=== PATIENT | female | born 1970 | race African-American/Black ===

== ENCOUNTER 2019-12-27 07:47 | Emergency (ER) | payer MEDICARE, SELFPAY ==
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
[2019-12-27 07:46] VITALS: BP 154/93; PULSE 108; RESP 13; TEMP 37.1; O2SAT 96
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
[2019-12-27 08:00] VITALS: RESP 15; O2SAT 98
[2019-12-27] MEDS: TETANUS,DIPHTHERIA,AC PERTUSSIS ADULT (0.5 ML) BOOSTRIX IM (08:33)
[2019-12-27 09:43] VITALS: BP 154/74; PULSE 82; RESP 16; O2SAT 99
== END 2019-12-27 09:44 | disposition home or self-care (01) ==
PROVIDERS: Emergency Provider Emergency Medicine; PCP Family Medicine
DX: S41.011A Laceration without foreign body of right shoulder, initial encounter (principal); K21.9 Gastro-esophageal reflux disease without esophagitis; I50.9 Heart failure, unspecified; I11.0 Hypertensive heart disease with heart failure; Z23 Encounter for immunization; X99.1XXA Assault by knife, initial encounter
CPT/HCPCS: 12001; 71046; 73030; 90471; 90715; 99284

== ENCOUNTER 2020-01-01 17:08 | Emergency (ER) | payer MEDICARE, SELFPAY ==
[2020-01-01 17:34] VITALS: BP 127/67; PULSE 100; RESP 16; TEMP 36.9; O2SAT 100
--- NOTE | 2020-01-01 18:23 | ED.GENADULT ---
HPI - General Adult General Chief complaint: Unspecified Stated complaint: stitches Time Seen by Provider: 01/01/20 18:23 Source: patient and RN notes reviewed Mode of arrival: ambulatory Limitations: no limitations and clinical condition History of Present Illness HPI narrative: 49-year-old -[place] female presents with complaints of wound to the RT upper posterior-lateral shoulder that was sutured on 12/27/19. [place] concerned that suture has fallen out and possible dehiscence (lower portion) of wound. Denies tenderness, erythema, or swelling from area. Denies drainage. No streaking. Denies fever or chills. Denies nausea, vomiting, and abdominal pain. Remains active. Some parts of this dictation were generated by voice recognition software and may contain typographical and/or grammatical inaccuracies. Related Data Home Medications Medication Instructions Recorded Confirmed aspirin 81 mg PO DAILY 01/01/20 01/01/20 bimatoprost [Lumigan] 0.01 % DAILY 01/01/20 01/01/20 ergocalciferol (vitamin D2) 50,000 unit WEEKLY 01/01/20 01/01/20 [Vitamin D2] pantoprazole 40 mg PO DAILY 01/01/20 01/01/20 potassium chloride 10 meq PO DAILY 01/01/20 01/01/20 verapamil 180 mg PO DAILY 01/01/20 01/01/20 Allergies Allergy/AdvReac Type Severity Reaction Status Date / Time metoprolol Allergy Severe Stopped Verified 01/01/20 17:36 Breathing azithromycin Allergy Unknown Other Verified 01/01/20 17:36 iodine AdvReac Unknown WEAK Verified 01/01/20 17:37 FEELING, N/V ESCITALOPRAM OXALATE Allergy Mild Other Uncoded 01/01/20 17:36 Contrast Media AdvReac Unknown WEAK Uncoded 01/01/20 17:37 FEELING, NV Review of Systems Review of Systems: Narrative: CONSTITUTIONAL: Denies fever, chills, sweats. EYES: Denies visual changes, redness, discharge. ENT: Denies rhinorrhea, congestion, sore throat, otalgia. CARDIOVASCULAR: Denies chest pain, palpitations, edema. RESPIRATORY: Denies dyspnea, wheezing, cough GASTROINTESTINAL: Denies abdominal pain, nausea, vomiting, diarrhea. GENITOURINARY: Denies dysuria, hematuria, abnormal discharge SKIN: Complains of wound to the RT upper posterior-lateral shoulder with suture placed on 12/27/19. Denies erythema, tenderness, or drainage. MUSCULOSKELETAL: Denies acute back pain, joint pain, or myalgia. NEUROLOGIC: Denies numbness or focal weakness. PSYCHIATRIC: Denies anxiety or depression. [facility] Past Medical History Medical History (Updated 01/01/20 @ 18:36 by AILEEN Haque) Acid reflux Anxiety Congestive heart failure Diverticulitis Hypertension Surgical History Surgical History (Updated 01/01/20 @ 18:32 by AILEEN Haque) H/O tubal ligation History of cholecystectomy History of hysterectomy Previous section Family History Family History (Updated 01/01/20 @ 18:33 by AILEEN Haque) Mother Hypertension Father Hypertension Social History Social History (Updated 01/01/20 @ 18:33 by AILEEN Haque) Smoking status: Never smoker Alcohol intake: never Substance use: never Living arrangements: with family Gender identity (if verbalized by the patient): Female Comments At time of signature, agree with nurse past medical, surgical, social, and family history. There is no relevant family history pertinent to the presenting complaint. Exam Narrative: Exam Narrative: GENERAL: This is a well-nourished, well-developed patient, in no apparent distress. Talks in full sentences and ambulates with steady gait without dyspnea. HEAD: normocephalic, atraumatic. EYES: PERRL. Sclera clear/white. Vision is grossly intact. CARDIOVASCULAR: Regular rate and rhythm without murmurs, gallops, or rubs. RESPIRATORY: Clear to auscultation. Breath sounds equal bilaterally. No wheezes, rales, or rhonchi. GASTROINTESTINAL: Abdomen soft, non-tender, nondistended. Bowel sounds are active. No hepato-splenomegaly, or palpable masses. N
== END 2020-01-01 18:40 | disposition home or self-care (01) ==
PROVIDERS: Emergency Provider Nurse Practitioner Family; PCP Family Medicine
DX: S41.011D Laceration without foreign body of right shoulder, subsequent encounter (principal); X58.XXXD Exposure to other specified factors, subsequent encounter; K21.9 Gastro-esophageal reflux disease without esophagitis; I11.0 Hypertensive heart disease with heart failure; I50.9 Heart failure, unspecified
CPT/HCPCS: 99211; G0463

== ENCOUNTER 2020-01-10 13:09 | Emergency (ER) | payer MEDICARE, SELFPAY ==
[2020-01-10 13:24] VITALS: BP 140/79; PULSE 90; RESP 18; TEMP 36.8; O2SAT 100
--- NOTE | 2020-01-10 13:28 | ED.GENADULT ---
HPI - General Adult General Chief complaint: Recheck/Abnormal Lab/Rx Stated complaint: wound check Time Seen by Provider: 01/10/20 13:30 Source: patient and RN notes reviewed Mode of arrival: ambulatory Limitations: no limitations History of Present Illness HPI narrative: This is a 49 years old female presents to the office for an evaluation for suture removal. She had three stitches put in on her right shoulder blade on December 26 in the ER. Wound has been healing per patient; denies any pain on affected area, pustular drainage, fever/achy feeling. Related Data Home Medications Medication Instructions Recorded Confirmed aspirin 81 mg PO DAILY 01/01/20 01/01/20 bimatoprost [Lumigan] 0.01 % DAILY 01/01/20 01/01/20 ergocalciferol (vitamin D2) 50,000 unit WEEKLY 01/01/20 01/01/20 [Vitamin D2] pantoprazole 40 mg PO DAILY 01/01/20 01/01/20 potassium chloride 10 meq PO DAILY 01/01/20 01/01/20 verapamil 180 mg PO DAILY 01/01/20 01/01/20 montelukast mg 01/10/20 Allergies Allergy/AdvReac Type Severity Reaction Status Date / Time metoprolol Allergy Severe Stopped Verified 01/02/20 15:55 Breathing escitalopram Allergy Mild Verified 01/02/20 15:55 Iodinated Contrast Media Allergy Mild Verified 01/02/20 15:55 azithromycin Allergy Unknown Other Verified 01/02/20 15:55 rosuvastatin Allergy Unknown Verified 01/02/20 15:55 iodine AdvReac Unknown WEAK Verified 01/02/20 15:55 FEELING, N/V ESCITALOPRAM OXALATE Allergy Mild Other Uncoded 01/02/20 15:55 Contrast Media AdvReac Unknown WEAK Uncoded 01/02/20 15:55 FEELING, NV Review of Systems Review of Systems: Narrative: CONSTITUTIONAL: Denies fever, chills CARDIOVASCULAR: Denies chest pain RESPIRATORY: Denies cough GASTROINTESTINAL: Denies nausea MUSCULOSKELETAL: Denies muscle pain NEUROLOGIC: Denies headache/dizziness [facility] Past Medical History Medical History Acid reflux Anxiety Congestive heart failure Diverticulitis Hypertension Surgical History Surgical History H/O tubal ligation History of cholecystectomy History of hysterectomy Previous section Family History Family History Mother Hypertension Father Hypertension Mother Patient's mother is in good health Hypertension Sibling Diabetes mellitus Hypertension Other Family history of malignant neoplasm of breast in first degree relative Social History Social History Smoking status: Never smoker Alcohol intake: never Substance use: never Gender identity (if verbalized by the patient): Female Comments At time of signature, I agree with nursing past medical, surgical, social and family history. There is no relevant family history pertinent to the presenting complaint. Exam Narrative: Exam Narrative: GENERAL: This is a well-nourished, well-developed patient, in no apparent distress. SKIN: right scapular region noted linear laceration, is healing with little scab noted; however there is only two stitches left; per patient one has fallen off a few days ago. I cleaned the wound with alcohol and stitches were removed easily with forcep and scissor; no bleeding at the site; wound care instruction provided. NEURO: awake, alert, and oriented to person, place and time. There were no obvious focal neurologic abnormalities. Steady gait Williamson Coma Scale Eye Opening: Spontaneous 4 Latrell Coma Scale Motor: Obeys Commands 6 Latrell Coma Scale Verbal: Oriented 5 Course Vital Signs Vital signs: Vital Signs Temperature 98.2 F 01/10/20 13:24 Pulse Rate 90 01/10/20 13:24 Respiratory Rate 18 01/10/20 13:24 Blood Pressure 140/79 01/10/20 13:24 Pulse Oximetry 100 01/10/20 13:24 Temperature 98.2 F 01/10/20 13:24 Pulse Rate
== END 2020-01-10 13:42 | disposition home or self-care (01) ==
PROVIDERS: Emergency Provider Nurse Practitioner; PCP Family Medicine
DX: S41.011D Laceration without foreign body of right shoulder, subsequent encounter (principal); K21.9 Gastro-esophageal reflux disease without esophagitis; I50.9 Heart failure, unspecified; I11.0 Hypertensive heart disease with heart failure; Z79.82 Long term (current) use of aspirin; X58.XXXD Exposure to other specified factors, subsequent encounter
CPT/HCPCS: 99211; G0463

== ENCOUNTER 2020-02-15 18:32 | Emergency (ER) | payer MEDICARE, SELFPAY ==
--- NOTE | ~2020-02-15 | XR_ITS ---
XR humerus LT 02/15/2020 19:15 INDICATION: Left arm pain PROCEDURE: 2 views left humerus COMPARISON: No prior studies for comparison. FINDINGS: Fracture, dislocation or subluxation is not identified. The soft tissues appear within norm al limits. No foreign bodies are identified. IMPRESSION: 1: NO ACUTE BONE OR JOINT ABNORMALITY IDENTIFIED. Reviewed, dictated and finalized at location A.
[2020-02-15 19:00] VITALS: BP 140/80; PULSE 95; RESP 18; TEMP 37.2; O2SAT 100
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
== END 2020-02-15 19:36 | disposition home or self-care (01) ==
PROVIDERS: Emergency Provider Nurse Practitioner; PCP Family Medicine
DX: S46.912A Strain of unspecified muscle, fascia and tendon at shoulder and upper arm level, left arm, initial encounter (principal); Z79.82 Long term (current) use of aspirin; K21.9 Gastro-esophageal reflux disease without esophagitis; I50.9 Heart failure, unspecified; I11.0 Hypertensive heart disease with heart failure; F41.9 Anxiety disorder, unspecified; W06.XXXA Fall from bed, initial encounter
CPT/HCPCS: 73060; 99213; G0463

== ENCOUNTER 2020-02-18 09:06 | Outpatient (CLI) | payer MEDICARE, MEDICAID, SELFPAY ==
--- NOTE | ~2020-02-18 | US_ITS ---
EXAMINATION: US pelvic complete w TV EXAM DATE: 02/18/2020 09:59 INDICATION: Pelvic and perineal pain. TECHNIQUE: Pelvic transabdominal and transvaginal sonogram was performed. There are multiple graysca le and Doppler images available for interpretation. Comparison is made to prior examination from 2017. FINDINGS: Patient has had hysterectomy. The vaginal cuff has several small cystic lesions, measuring up to 1.8 cm in size, probably nabothian cysts. These were present on prior study. There is no free p elvic fluid. Right adnexa: The ovary is not identified. There is no adnexal mass. Reportedly patient has had oopho rectomy. Left adnexa: The ovary is not identified. There is no adnexal mass. IMPRESSION: 1. Vaginal cuff small cystic lesions probably nabothian cysts, unchanged. Reviewed, dictated and finalized at location A.
== END 2020-02-18 09:07 | disposition home or self-care (01) ==
LOC: ANHIMG 09:14
PROVIDERS: PCP Family Medicine; Visit Provider Obstetrics & Gynecology
DX: R10.2 Pelvic and perineal pain (principal)
CPT/HCPCS: 76830; 76856